=== PATIENT | male | born 1970 | race African-American/Black ===

== ENCOUNTER 2017-01-14 13:19 | Emergency (ER) | payer MEDICAID ==
[2017-01-14 13:56] VITALS: BP 139/88; PULSE 74; RESP 18; TEMP 98.2; O2SAT 98
== END 2017-01-14 16:00 | disposition left against medical advice (07) ==
DX: Z53.21 Procedure and treatment not carried out due to patient leaving prior to being seen by health care provider (principal)

== ENCOUNTER → 2018-10-28 | Outpatient (CLI) | payer OTHER, MEDICAID | LOC: FIMAGING 10:01 ==